=== PATIENT | female | born 1930 | race Caucasian/White ===

== ENCOUNTER 2016-12-27 17:44 | Emergency (ER) | payer MEDICARE, BC | END 2016-12-27 18:36 | disposition home or self-care (01) | LOC: ER 17:44 | DX: L03.116 Cellulitis of left lower limb (principal); I10 Essential (primary) hypertension; Z86.718 Personal history of other venous thrombosis and embolism; Z90.710 Acquired absence of both cervix and uterus; Z79.899 Other long term (current) drug therapy ==